=== PATIENT | male | born 1960 | race Caucasian/White ===

== ENCOUNTER 2016-09-20 06:25 | Day surgery (SDC) | payer BC ==
[~2016-09-20] VITALS: Ht 172.7 cm; Wt 84.4 kg
[~2016-09-20 06:25] MED LIST: FENOFIBRATE160 MG PO; MINOCYCLINE HCL50 M1 PO; VITAMIN C500 M4 PO; VITAMIN D35000 UNI1 PO; ZOFRAN ODT8 MG PO
[2016-09-20] MEDS ORDERED: MULTIVITAMINS1 EAC7 PO (06:42)
--- NOTE | 2016-09-20 08:12 | NUR ---
09/20/16 0812 Carmelo Ybarra PT SLEEPING AND PASSING AIR FROM HIS COLON. SAT 100%, O2 TURNED OFF.
--- NOTE | 2016-09-28 10:32 | OR ---
[facility] [address], [place] [address] Signed DATE OF SERVICE: 09/20/2016 PREOPERATIVE DIAGNOSIS: Colon screening. POSTOPERATIVE DIAGNOSIS: Normal colon to cecum. PROCEDURE: Total colonoscopy to cecum. ANESTHESIA: Intravenous sedation fentanyl 100 mcg, Versed at 5 mg. INDICATION: This 56-year-old white man is a patient of Dr. Vicente Muñiz. He is referred for screening colonoscopy based on his age. He has no symptoms of bleeding, diarrhea, or constipation. He has no family history of colon cancer. He understands the risks of colonoscopy including, but not limited to bleeding, infection, perforation and wished to proceed. FINDINGS: The prep was excellent. Complete colonoscopy was undertaken of the cecum. There was no sign of polyps, diverticular formation, colitis, or cancer. PROCEDURE: The patient was brought to the endoscopy suite and placed in lateral decubitus position. Given intravenous sedation to the point of slurred speech and nystagmus. Digital rectal examination was normal. An Olympus video colonoscope was passed in the rectum and manipulated throughout the colon ultimately intubating the cecum itself. The ileocecal valve and appendiceal orifice were normal. The scope was carefully withdrawn from that point. Careful scanning back and forth and each and every fold showed no evidence of abnormality specifically no polyps, diverticular formation, colitis, or cancer. Retroflexion in the rectum was normal. The scope was removed. The patient was taken to recovery room in good condition. CONCLUDING DIAGNOSIS: Normal colon. PLAN: Recommend repeat colonoscopy in 10 years, sooner if symptoms should occur. He will return to the ongoing care of Dr. Muñiz. Miguelito Goins MD Electronically Signed By: MIGUELITO GOINS MD 09/28/16 1032 PATIENT NAME: KUN JAVED OPERATIVE REPORT DATE OF : 64 PHYSICIAN: MIGUELITO GOINS MD REPORT #: [id number] REPORT IS CONFIDENTIAL AND NOT TO BE RELEASED WITHOUT AUTHORIZATION [address] [address] Signed ERICH/Modl /[id number] cc: Vicente Muñiz Electronically Signed By: MIGUELITO GOINS MD 09/28/16 1032 PATIENT NAME: KUN JAVED OPERATIVE REPORT DATE OF : 64 PHYSICIAN: MIGUELITO GOINS MD REPORT #: [id number] REPORT IS CONFIDENTIAL AND NOT TO BE RELEASED WITHOUT AUTHORIZATION
== END 2016-09-20 08:50 | disposition home or self-care (01) ==
LOC: DS 06:25 → OPS 06:25 → DS 06:45 → OPS 08:50
PROVIDERS: Surgery
PROC: 0DJD8ZZ Inspection of Lower Intestinal Tract, Via Natural or Artificial Opening Endoscopic (ICD-10-PCS; principal; 2016-09-20 06:45)
DX: Z12.11 Encounter for screening for malignant neoplasm of colon (principal); J45.909 Unspecified asthma, uncomplicated; G47.30 Sleep apnea, unspecified; Z87.09 Personal history of other diseases of the respiratory system; Z96.643 Presence of artificial hip joint, bilateral; Z98.890 Other specified postprocedural states
CPT/HCPCS: 99152; 99153; J0694; J2250; J3010; J7120

== ENCOUNTER 2021-02-10 09:30 | Emergency (ER) | payer BC ==
[~2021-02-10] VITALS: Ht 172.7 cm; Wt 84.4 kg
[~2021-02-10 09:30] MED LIST changes: +MULTIVITAMINS1 EAC7 PO
== END 2021-02-10 13:00 | disposition home or self-care (01) ==
LOC: ED 09:30
DX: U07.1 COVID-19 (principal); Z23 Encounter for immunization; E78.00 Pure hypercholesterolemia, unspecified; Z88.8 Allergy status to other drugs, medicaments and biological substances; Z91.013 Allergy to seafood; Z79.899 Other long term (current) drug therapy
CPT/HCPCS: 99284-25; J7050; M0245

== ENCOUNTER 2023-10-20 11:52 | Emergency (ER) | payer OTHER, BC ==
[~2023-10-20] VITALS: Ht 172.7 cm; Wt 76.2 kg
[~2023-10-20 11:52] MED LIST changes: +DIAZEPAM5 MG PO; +FISH OIL 1,0001 EAC9 PO; +METHYLPREDNISOLO4 M1 PO; +NEURONTIN100 MG PO; +PROCTO-MED HC28 GM TOP; +VITAMIN C1000 MG PO
[2023-10-20 15:08] VITALS: BP 140/74
== END 2023-10-20 15:15 | disposition home or self-care (01) ==
LOC: ED 11:52
DX: S09.90XA Unspecified injury of head, initial encounter (principal); V80.010A Animal-rider injured by fall from or being thrown from horse in noncollision accident, initial encounter; Z91.013 Allergy to seafood; Z91.048 Other nonmedicinal substance allergy status; Z79.899 Other long term (current) drug therapy
CPT/HCPCS: 70450; 72125; 99284-25